=== PATIENT | male | born 1955 | race Caucasian/White ===

== ENCOUNTER → 2018-12-28 | Outpatient (CLI) | payer BC ==
--- NOTE | 2018-12-29 14:40 | CT ---
EXAMINATION TYPE: CT abdomen wo con DATE OF EXAM: 12/28/2018 COMPARISON: CT dated 07/10/2013 HISTORY: Annual follow-up to AAA repair sx 4 years ago. Pt kidney dr not permitting IV contrast study . Oral only CT DLP: 1006.10 mGycm Automated exposure control for dose reduction was used. TECHNIQUE: Helical acquisition of images was performed from the lung bases through the top of iliac crest to include entire abdomen. CONTRAST: Performed with Oral Contrast and without IV contrast. FINDINGS: Lack of intravenous contrast could compromise sensitivity. The abdominal aorta aneurysm hola ws a stent graft in place. The aorta measures approximately 3.5 cm at the aortic hiatus. At the level of the renal arteries the right kidney is atrophic and there is a hypodense focus posteriorly likely representing cyst measuring 18 mm. Left renal artery origin shows close proximity to the cephalad ma rgin of the stent graft. Maximum diameter of the abdominal aortic aneurysm is 7.5 cm which is increas ed compared to prior exam when it measured 6.1 cm. Low dense foci are associated with the left kidney at the midpole anteriorly there is a focus measuring 18 mm, posteriorly measuring 8 mm. LUNG BASES: No significant abnormality is appreciated. There are coronary artery calcifications prese nt. Enlargement of the pulmonary artery suggests pulmonary artery hypertension. No pericardial or ple ural effusion. There is a small hiatal hernia. Patient is likely post gastric sleeve placement. LIVER/GB: Liver is enlarged. Gallbladder appears contracted.. PANCREAS: Fatty replaced.. SPLEEN: Enlarged ADRENALS: No significant abnormality is seen. KIDNEYS: No significant abnormality is seen. BOWEL: No significant abnormality is seen. LYMPH NODES: No significan abnormality is appreciated. OSSEOUS STRUCTURES: No significant abnormality is seen. FREE AIR: No Free Air visible ASCITES: None visible. RETROPERITONEAL ADENOPATHY: No Retroperitoneal Adenopathy visible. OTHER: IMPRESSION: ABDOMINAL AORTIC ANEURYSM MEASURES 7.5 CM AND HAS INCREASED IN SIZE, CORRELATE FOR POSSIBLE ENDOLEAK. POSSIBLE UNDERLYING PULMONARY ARTERY HYPERTENSION. SPLENOMEGALY. NONCONTRAST EXAM.
== END | disposition home or self-care (01) ==
LOC: RADCTMAIN 15:54
PROVIDERS: ATTEND Urology
DX: I71.4 Abdominal aortic aneurysm, without rupture (principal); R16.1 Splenomegaly, not elsewhere classified; Z91.09 Other allergy status, other than to drugs and biological substances; Z91.02 Food additives allergy status; Z91.030 Bee allergy status; Z88.8 Allergy status to other drugs, medicaments and biological substances
CPT/HCPCS: 74150; Q9967

== ENCOUNTER → 2019-01-01 | Outpatient (CLI) | payer BC ==
[2019-01-01 15:27] LABS: Basophils # (A) 0.1 k/uL (0-0.2); Basophils % (A) 1 %; Eosinophils # (A) 0.7 k/uL (0-0.7); Eosinophils % (A) 11 %; HCT 39.4 % (39.0-53.0); HGB 12.5 gm/dL (13.0-17.5); Hypochromasia Slight; Lymphocytes # (A) 0.7 k/uL (1.0-4.8); Lymphocytes % (A) 10 %; MCH 27.4 pg (25.0-35.0); MCHC 31.8 g/dL (31.0-37.0); MCV 86.2 fL (80.0-100.0); Mean Platelet Volume 5.5; Monocytes # (A) 0.7 k/uL (0-1.0); Monocytes % (A) 10 %; Neutrophils # (A) 4.5 k/uL (1.3-7.7); Neutrophils % (A) 65 %; Platelet Count 339 k/uL (150-450); RBC 4.57 m/uL (4.30-5.90); RDW 13.8 % (11.5-15.5)
[2019-01-01 15:36] LABS: African American GFR (CKD) 32 (>60 ml/min/1.73 sqM); Anion Gap 11 mmol/L; Blood Urea Nitrogen 35 mg/dL (9-20); Calcium 9.4 mg/dL (8.4-10.2); Carbon Dioxide 22 mmol/L (22-30); Chloride 102 mmol/L (98-107); Glucose 97 mg/dL (74-99); Potassium 4.9 mmol/L (3.5-5.1); Sodium 135 mmol/L (137-145)
== END | disposition home or self-care (01) ==
LOC: LABWHC1 14:17
PROVIDERS: ATTEND Family Medicine
DX: I12.9 Hypertensive chronic kidney disease with stage 1 through stage 4 chronic kidney disease, or unspecified chronic kidney disease (principal); N18.3 Chronic kidney disease, stage 3 (moderate); R53.83 Other fatigue; R07.89 Other chest pain; R06.00 Dyspnea, unspecified
CPT/HCPCS: 36415; 80048; 85025